=== PATIENT | female | born 1970 | race Two or more races ===

== ENCOUNTER 2022-06-22 13:36 | Emergency (ER) | payer BC ==
[~2022-06-22] VITALS: Ht 152.4 cm; Wt 100.7 kg
[2022-06-22] MEDS ORDERED: AJOVY AUTO225 MG/1.5 SQ (14:05)
[2022-06-22] MEDS ORDERED: SERTRALINE HCL100 MG PO (14:05)
[2022-06-22] MEDS ORDERED: NURTEC ODT75 MG PO (14:05)
[2022-06-22] MEDS ORDERED: UBRELVY100 MG PO (14:05)
[2022-06-22] MEDS ORDERED: MONTELUKAST SOD10 MG PO (14:06)
[2022-06-22] MEDS ORDERED: OMEPRAZOLE40 MG PO (14:06)
[2022-06-22] MEDS ORDERED: GABAPENTIN600 MG PO (14:06)
[2022-06-22] MEDS ORDERED: CYCLOBENZAPRINE10 MG PO (14:07)
== END 2022-06-22 19:29 | disposition home or self-care (01) ==
LOC: ER 13:36
DX: R05.9 Cough, unspecified (principal); Z20.822 Contact with and (suspected) exposure to COVID-19